=== PATIENT | male | born 1965 | race Hispanic/Latino ===

== ENCOUNTER 2021-07-29 19:34 | Inpatient (IN) | payer MEDICARE, MEDICAID ==
[2021-07-29] MEDS ORDERED: Succinylcholine 200 MG/10 ml SYRINGE FS ONE (20:06)
[2021-07-29] MEDS ORDERED: Propofol 1,000 MG/100 ML VIAL IV ONE (20:15)
[2021-07-29] MEDS ORDERED: Lorazepam 2 MG/ML VIAL ONE (20:24)
[2021-07-29] MEDS ORDERED: Fentanyl 100 MCG/2 ML VIAL ONE (20:31)
[2021-07-29] MEDS ORDERED: Dexamethasone 10 MG/ML VIAL ONE (20:40)
[2021-07-29] MEDS ORDERED: Fentanyl CADD 100 ML IV SCH (20:45)
[2021-07-29 20:47] LABS: Hemoglobin 16.1 g/dL (14.0-18.0); Mean Corpuscular HGB CONC 35.4 g/dL (32.0-36.0); Mean Corpuscular Volume 98.8 fL (78.0-98.0); Mean Platelet Volume 8.4 fL (7.4-10.4); Platelet Count 152 thou/uL (130-400); RBC Distribution Width 12.9 % (11.5-14.5); Red Blood Cell (RBC) Count 4.59 mill/uL (4.70-6.10)
[2021-07-29 20:58] LABS: Analyzer IN Cardio ER; Base Excess (BEa) -7.1 mEq/L (-2.0 to +3.0); CO2 Tension 40.7 mmHg (35.0-45.0); Calcium, Ionized (arterial) 1.04 mmol/L (1.12-1.30); Carboxyhemoglobin (COHb) 0.7 gm% (0.0-3.0); Hemoglobin (Hb) 15.8 g/dL (14.0-18.0); Potassium - ABG Lab 3.41 mmol/L (3.70-5.30); pH, Arterial 7.29 (7.35-7.45)
[2021-07-29 21:00] LABS: ALV-art Gradient 607.425 mmHg (0-20); O2 Tension (PaO2), arterial 54.7 mmHg (80.0-100.0); Puncture Site LBA
[2021-07-29 21:20] LABS: CKMB 10.1 ng/mL (0-6.6)
[2021-07-29 21:25] LABS: Band 19 % (5-11); Lymphocytes 11 % (21-51); MDiff Complete? YES; Monocytes 5 % (0-10); Neutrophil 65 % (42-75)
[2021-07-29 21:41] LABS: SARS-CoV-2 NAA Rapid Test DETECTED (NotDetected)
[2021-07-29 21:49] LABS: Calcium 7.9 mg/dL (7.8-10.44); Chloride 102 mmol/L (98-107); Potassium 3.6 mmol/L (3.5-5.1); Sodium 137 mmol/L (136-145)
[2021-07-29 21:50] LABS: Globulin 4.2 g/dL (2.4-3.5); Glucose 176 mg/dL (70-105); Protein, Total 7.2 g/dL (6.0-8.3)
[2021-07-29 21:52] LABS: Anion Gap 20 mmol/L (10-20); Bilirubin, Total 0.6 mg/dL (0.2-1.2); Carbon Dioxide 19 mmol/L (22-29)
[2021-07-29 21:53] LABS: Alkaline Phosphatase 106 U/L (40-110); Calc. Creatinine Clearance 0 mL/min (70-130)
[2021-07-29 21:54] LABS: BUN (Urea Nitrogen) 52 mg/dL (8.4-25.7)
[2021-07-29 21:55] LABS: AST (SGOT) 130 U/L (5-34)
[2021-07-29 21:56] LABS: ALT (SGPT) 39 U/L (8-55)
[2021-07-29] MEDS ORDERED: Ondansetron ODT 4 MG TAB PO PRN (22:50)
[2021-07-29] MEDS ORDERED: Ondansetron PF 4 MG/2 ML Vial IVP PRN (22:50)
[2021-07-29] MEDS ORDERED: Acetaminophen 325 MG TAB PO PRN (22:50)
[2021-07-29] MEDS ORDERED: Acetaminophen 650 MG Suppository PR PRN (22:50)
[2021-07-29] MEDS ORDERED: Ventilator Sedation Protocol 1 EACH FS SCH (23:00)
[2021-07-29] MEDS ORDERED: Morphine 4 MG/ML VIAL SLOW IVP PRN (23:16)
[2021-07-29] MEDS ORDERED: DISCONTINUE PREVIOUS NARCOTIC PAIN MEDICATIONS AND BENZODIAZEPINES FS SCH (23:30)
[2021-07-29] MEDS ORDERED: Propofol BOLUS 1,000 MG/100 ML VIAL IV PRN (23:30)
[2021-07-29] MEDS ORDERED: Fentanyl BOLUS 250 ML IVPB PRN (23:30)
[2021-07-29 23:59] LABS: Actual Bicarbonate (HCO3a) 23.1 mEq/L (22-28); Base Excess (BEa) -0.5 mEq/L (-2.0 to +3.0); Calcium, Ionized (arterial) 1.03 mmol/L (1.12-1.30); Carboxyhemoglobin (COHb) 0.6 gm% (0.0-3.0); Hemoglobin (Hb) 15.7 g/dL (14.0-18.0); Potassium - ABG Lab 3.63 mmol/L (3.70-5.30); pH, Arterial 7.44 (7.35-7.45)
[2021-07-30] LABS: O2 Tension (PaO2), arterial 46.4 mmHg (80.0-100.0); Puncture Site LRA
[2021-07-30 00:09] LABS: Anion Gap 16 mmol/L (10-20); BUN (Urea Nitrogen) 55 mg/dL (8.4-25.7); CRP (Inflammatory) 6.05 mg/dL (= or < 0.5); Calc. Creatinine Clearance 0 mL/min (70-130); Calcium 7.9 mg/dL (7.8-10.44); Carbon Dioxide 22 mmol/L (22-29); Chloride 102 mmol/L (98-107); Glucose 191 mg/dL (70-105); Potassium 3.6 mmol/L (3.5-5.1); Sodium 136 mmol/L (136-145)
[2021-07-30] MEDS ORDERED: Albuterol 200 PUFF (6.7GM INHALER) INH PRN (00:09)
[2021-07-30] MEDS ORDERED: Sterile Water 10 ML VIAL FS PRN (00:18)
[2021-07-30] MEDS: Vecuronium 10 MG VIAL IVP PRN ×4 (01:17→20:30)
[2021-07-30] MEDS: Propofol 1,000 MG/100 ML VIAL IV PRN ×2 (01:17→20:30)
[2021-07-30 01:24] LABS: Troponin I 0.061 ng/mL (< 0.028)
[2021-07-30] MEDS ORDERED: Enoxaparin Sodium 80 MG/0.8 ML SYRINGE SC SCH (01:30)
[2021-07-30] MEDS ORDERED: Sodium Chloride 0.9% 1,000 ML IV SCH (01:30)
[2021-07-30] MEDS: Albuterol 200 PUFF (6.7GM INHALER) INH SCH ×6 (03:43→22:53)
[2021-07-30 04:04] LABS: Troponin I 0.048 ng/mL (< 0.028)
[2021-07-30 04:34] LABS: #Lymphocytes 0.4 thou/uL (1.20-3.40); #Monocytes 0.3 thou/uL (0.11-0.59); #Neutrophils 2.1 thou/uL (1.40-6.50); %Eosinophils 0.2 % (0.0-10.0); %Lymphocytes 15.3 % (21.0-51.0); %Monocytes 10.5 % (0.0-10.0); Mean Corpuscular HGB CONC 34.7 g/dL (32.0-36.0); Mean Corpuscular Hemoglobin 33.7 pg (27.0-31.0); Mean Corpuscular Volume 96.9 fL (78.0-98.0); Mean Platelet Volume 8.9 fL (7.4-10.4); Platelet Count 123 thou/uL (130-400); RBC Distribution Width 12.9 % (11.5-14.5); Red Blood Cell (RBC) Count 4.16 mill/uL (4.70-6.10); White Blood Cell (WBC) Count 2.8 thou/uL (4.8-10.8)
[2021-07-30] MEDS: Ascorbic Acid 500 mg Chewable Tablet PO SCH (07:40)
[2021-07-30] MEDS: Cholecalciferol (Vitamin D3) 400 UNITS TAB PO SCH (07:41)
[2021-07-30] MEDS: Zinc Sulfate 220 MG CAP PO SCH (07:41)
[2021-07-30] MEDS: Pantoprazole 40 MG VIAL IVP SCH (07:41)
[2021-07-30 08:37] LABS: Actual Bicarbonate (HCO3a) 18.9 mEq/L (22-28); Base Excess (BEa) -1.7 mEq/L (-2.0 to +3.0); CO2 Tension 23.7 mmHg (35.0-45.0); Calcium, Ionized (arterial) 1.06 mmol/L (1.12-1.30); Carboxyhemoglobin (COHb) 0.6 gm% (0.0-3.0); Hemoglobin (Hb) 15.9 g/dL (14.0-18.0); O2 Tension (PaO2), arterial 51.5 mmHg (80.0-100.0); Potassium - ABG Lab 3.18 mmol/L (3.70-5.30); pH, Arterial 7.52 (7.35-7.45)
[2021-07-30 08:38] LABS: ALV-art Gradient 631.875 mmHg (0-20); Puncture Site RRA
[2021-07-30] MEDS ORDERED: Enoxaparin Sodium 30 MG/0.3 ML SYRINGE SC SCH (09:00)
[2021-07-30] MEDS ORDERED: Dexamethasone 10 MG/ML VIAL SLOW IVP SCH (09:00)
[2021-07-30] MEDS ORDERED: Sterile Water 0 ML ONE (13:57)
[2021-07-30] MEDS: Lorazepam 2 MG/ML VIAL SLOW IVP PRN (20:30)
[2021-07-30] MEDS: Dexamethasone 10 MG/ML VIAL SLOW IVP SCH (20:31)
[2021-07-30] MEDS: Enoxaparin Sodium 80 MG/0.8 ML SYRINGE SC SCH (20:31)
[2021-07-30] MEDS: HumaLOG 300 UNITS/3 ML VIAL SC PRN (23:04)
[2021-07-31] MEDS: Fentanyl CADD 100 ML IV SCH (02:41)
[2021-07-31 03:57] LABS: ALT (SGPT) 37 U/L (8-55); AST (SGOT) 97 U/L (5-34); Albumin 2.5 g/dL (3.5-5.0); Alkaline Phosphatase 101 U/L (40-110); Anion Gap 17 mmol/L (10-20); BUN (Urea Nitrogen) 63 mg/dL (8.4-25.7); Bilirubin, Total 1.8 mg/dL (0.2-1.2); Calc. Creatinine Clearance 28 mL/min (70-130); Calcium 7.8 mg/dL (7.8-10.44); Carbon Dioxide 18 mmol/L (22-29); Chloride 107 mmol/L (98-107); Glucose 228 mg/dL (70-105); Potassium 3.8 mmol/L (3.5-5.1); Protein, Total 6.5 g/dL (6.0-8.3); Sodium 138 mmol/L (136-145)
[2021-07-31] MEDS: HumaLOG 300 UNITS/3 ML VIAL SC PRN ×4 (04:41→21:24)
[2021-07-31 08:07] LABS: Actual Bicarbonate (HCO3a) 19.5 mEq/L (22-28); Base Excess (BEa) -3.6 mEq/L (-2.0 to +3.0); CO2 Tension 30.4 mmHg (35.0-45.0); Calcium, Ionized (arterial) 1.04 mmol/L (1.12-1.30); Carboxyhemoglobin (COHb) 0.8 gm% (0.0-3.0); Hemoglobin (Hb) 15.6 g/dL (14.0-18.0); O2 Tension (PaO2), arterial 87.5 mmHg (80.0-100.0); Potassium - ABG Lab 3.83 mmol/L (3.70-5.30); pH, Arterial 7.43 (7.35-7.45)
[2021-07-31 08:11] LABS: Puncture Site RRA
[2021-07-31] MEDS ORDERED: FLU VACC QS2021-22(6MOS UP)/PF 60 MCG/0.5 ML SYRINGE IM ONE (09:00)
[2021-07-31] MEDS: Zinc Sulfate 220 MG CAP PO SCH (09:15)
[2021-07-31] MEDS: Pantoprazole 40 MG VIAL IVP SCH (09:15)
[2021-07-31] MEDS: Dexamethasone 10 MG/ML VIAL SLOW IVP SCH ×2 (09:15→20:07)
[2021-07-31] MEDS: Cholecalciferol (Vitamin D3) 400 UNITS TAB PO SCH (09:15)
[2021-07-31] MEDS: Ascorbic Acid 500 mg Chewable Tablet PO SCH (09:15)
[2021-07-31] MEDS: Sodium Chloride 0.45% 1,000 ML IV SCH (12:00)
[2021-07-31] MEDS ORDERED: Atropine Sulfate 1 mg/10 ml Syringe ONE (13:21)
[2021-07-31] MEDS ORDERED: DOPamine 400 MG/D5W 250 ML 250 ML IVPB SCH (13:45)
[2021-07-31] MEDS: Albuterol 200 PUFF (6.7GM INHALER) INH SCH ×5 (14:30→21:36)
[2021-07-31] MEDS: Propofol 1,000 MG/100 ML VIAL IV PRN (16:00)
[2021-07-31] MEDS: Vecuronium 10 MG VIAL IVP PRN ×2 (16:18→20:06)
[2021-07-31] MEDS: Enoxaparin Sodium 80 MG/0.8 ML SYRINGE SC SCH (20:06)
[2021-07-31] MEDS: Lorazepam 2 MG/ML VIAL SLOW IVP PRN (20:06)
[2021-07-31] MEDS: Metoclopramide HCl 10 MG/2 ML VIAL IVP SCH (20:09)
[2021-08-01] MEDS: Sodium Chloride 0.45% 1,000 ML IV SCH ×2 (00:29→17:01)
[2021-08-01] MEDS: Albuterol 200 PUFF (6.7GM INHALER) INH SCH ×6 (00:57→22:32)
[2021-08-01 04:07] LABS: ALT (SGPT) 36 U/L (8-55); AST (SGOT) 76 U/L (5-34); Albumin 2.5 g/dL (3.5-5.0); Alkaline Phosphatase 104 U/L (40-110); Anion Gap 17 mmol/L (10-20); BUN (Urea Nitrogen) 62 mg/dL (8.4-25.7); Bilirubin, Total 3.4 mg/dL (0.2-1.2); Calc. Creatinine Clearance 39 mL/min (70-130); Calcium 7.8 mg/dL (7.8-10.44); Carbon Dioxide 16 mmol/L (22-29); Chloride 111 mmol/L (98-107); Globulin 4.2 g/dL (2.4-3.5); Glucose 238 mg/dL (70-105); Potassium 4.6 mmol/L (3.5-5.1); Protein, Total 6.7 g/dL (6.0-8.3); Sodium 139 mmol/L (136-145)
[2021-08-01] MEDS: HumaLOG 300 UNITS/3 ML VIAL SC PRN ×4 (04:58→22:08)
[2021-08-01] MEDS: Vecuronium 10 MG VIAL IVP PRN ×2 (07:25→13:31)
[2021-08-01] MEDS: Ascorbic Acid 500 mg Chewable Tablet PO SCH (08:26)
[2021-08-01] MEDS: Metoclopramide HCl 10 MG/2 ML VIAL IVP SCH ×2 (08:26→20:00)
[2021-08-01] MEDS: Cholecalciferol (Vitamin D3) 400 UNITS TAB PO SCH (08:26)
[2021-08-01] MEDS: Dexamethasone 10 MG/ML VIAL SLOW IVP SCH ×2 (08:26→20:00)
[2021-08-01] MEDS: Zinc Sulfate 220 MG CAP PO SCH (08:26)
[2021-08-01] MEDS: Pantoprazole 40 MG GRANULES PACKET PER TUBE SCH (08:27)
[2021-08-01] MEDS: Lorazepam 2 MG/ML VIAL SLOW IVP PRN (13:44)
[2021-08-01 13:55] VITALS: BMI 26.0
[2021-08-01] MEDS ORDERED: Norepinephrine 8 MG/0.9% NS 250 ML ONE (14:40)
[2021-08-01] MEDS ORDERED: Sodium Chloride 0.9% 1,000 ML IV SCH ×2 (15:00→18:15)
[2021-08-01] MEDS ORDERED: Sodium Bicarbonate 150 MEQ in Dextrose 5% in Water 1,000 ML IV SCH (15:30)
[2021-08-01] MEDS: Enoxaparin Sodium 80 MG/0.8 ML SYRINGE SC SCH (20:00)
[2021-08-01] MEDS: Propofol 1,000 MG/100 ML VIAL IV PRN (22:16)
[2021-08-02] MEDS: Albuterol 200 PUFF (6.7GM INHALER) INH SCH ×6 (01:40→21:45)
[2021-08-02] MEDS: Fentanyl CADD 100 ML IV SCH (02:54)
[2021-08-02] MEDS: HumaLOG 300 UNITS/3 ML VIAL SC PRN ×4 (04:11→22:41)
[2021-08-02 04:14] LABS: ALT (SGPT) 25 U/L (8-55); AST (SGOT) 40 U/L (5-34); Albumin 2.1 g/dL (3.5-5.0); Alkaline Phosphatase 82 U/L (40-110); Anion Gap 11 mmol/L (10-20); BUN (Urea Nitrogen) 64 mg/dL (8.4-25.7); Bilirubin, Total 4.3 mg/dL (0.2-1.2); Calc. Creatinine Clearance 44 mL/min (70-130); Calcium 7.4 mg/dL (7.8-10.44); Carbon Dioxide 25 mmol/L (22-29); Chloride 106 mmol/L (98-107); Globulin 3.6 g/dL (2.4-3.5); Glucose 285 mg/dL (70-105); Potassium 3.9 mmol/L (3.5-5.1); Protein, Total 5.7 g/dL (6.0-8.3); Sodium 138 mmol/L (136-145)
[2021-08-02 04:26] LABS: Hemoglobin 14.3 g/dL (14.0-18.0); Mean Corpuscular Hemoglobin 34.4 pg (27.0-31.0); Mean Platelet Volume 9.3 fL (7.4-10.4); Platelet Count 124 thou/uL (130-400); RBC Distribution Width 13.7 % (11.5-14.5); Red Blood Cell (RBC) Count 4.16 mill/uL (4.70-6.10); White Blood Cell (WBC) Count 10.7 thou/uL (4.8-10.8)
[2021-08-02 04:27] LABS: Band 45 % (5-11); Lymphocytes 1 % (21-51); MDiff Complete? YES; Metamyelocyte 1 % (0-0); Monocytes 2 % (0-10); Neutrophil 51 % (42-75); Platelet Morphology Comment Appears Decreased
[2021-08-02] MEDS: Sodium Chloride 0.9% 1,000 ML IV SCH (05:31)
[2021-08-02 08:08] LABS: Actual Bicarbonate (HCO3a) 23.7 mEq/L (22-28); Base Excess (BEa) -1.1 mEq/L (-2.0 to +3.0); CO2 Tension 40.2 mmHg (35.0-45.0); Calcium, Ionized (arterial) 1.01 mmol/L (1.12-1.30); Carboxyhemoglobin (COHb) 0.9 gm% (0.0-3.0); Hemoglobin (Hb) 14.5 g/dL (14.0-18.0); Potassium - ABG Lab 3.52 mmol/L (3.70-5.30); pH, Arterial 7.39 (7.35-7.45)
[2021-08-02 08:09] LABS: O2 Tension (PaO2), arterial 40.9 mmHg (80.0-100.0); Puncture Site RRA
[2021-08-02] MEDS: Propofol 1,000 MG/100 ML VIAL IV PRN (08:40)
[2021-08-02] MEDS: Cholecalciferol (Vitamin D3) 400 UNITS TAB PO SCH (08:41)
[2021-08-02] MEDS: Pantoprazole 40 MG GRANULES PACKET PER TUBE SCH (08:41)
[2021-08-02] MEDS: Zinc Sulfate 220 MG CAP PO SCH (08:41)
[2021-08-02] MEDS: Metoclopramide HCl 10 MG/2 ML VIAL IVP SCH ×2 (08:41→20:01)
[2021-08-02] MEDS: Ascorbic Acid 500 mg Chewable Tablet PO SCH (08:41)
[2021-08-02] MEDS: Dexamethasone 10 MG/ML VIAL SLOW IVP SCH ×2 (08:41→20:01)
[2021-08-02] MEDS: Norepinephrine 8 MG/0.9% NS 250 ML IVPB SCH ×2 (08:46→22:40)
[2021-08-02] MEDS ORDERED: Amiodarone 150 MG, Admixture Fee 1 EACH in Dextrose 5% in Water 100 ML IVPB SCH (09:15)
[2021-08-02] MEDS: Amiodarone 450 MG, Admixture Fee 1 EACH in Dextrose 5% in Water 250 ML IVPB SCH ×2 (09:37→18:05)
[2021-08-02] MEDS ORDERED: Vecuronium 10 MG VIAL ONE (09:52)
[2021-08-02] MEDS: Vecuronium 10 MG VIAL IVP PRN ×3 (10:21→18:04)
[2021-08-02] MEDS ORDERED: Sterile Water 10 ML ONE ×2 (14:31→18:00)
[2021-08-02 14:51] VITALS: BP 95/61
[2021-08-02] MEDS: Enoxaparin Sodium 80 MG/0.8 ML SYRINGE SC SCH (20:01)
[2021-08-03 00:31] VITALS: TEMP 99.7
[2021-08-03] MEDS: Propofol 1,000 MG/100 ML VIAL IV PRN (01:24)
[2021-08-03] MEDS: Sodium Chloride 0.9% 1,000 ML IV SCH (01:25)
[2021-08-03] MEDS: Albuterol 200 PUFF (6.7GM INHALER) INH SCH ×2 (03:05→07:57)
[2021-08-03] MEDS: Fentanyl CADD 100 ML IV SCH (03:29)
[2021-08-03 04:59] LABS: ALT (SGPT) 22 U/L (8-55); AST (SGOT) 49 U/L (5-34); Albumin 1.9 g/dL (3.5-5.0); Alkaline Phosphatase 71 U/L (40-110); Anion Gap 18 mmol/L (10-20); BUN (Urea Nitrogen) 79 mg/dL (8.4-25.7); Calc. Creatinine Clearance 39 mL/min (70-130); Calcium 7.4 mg/dL (7.8-10.44); Carbon Dioxide 20 mmol/L (22-29); Chloride 104 mmol/L (98-107); Globulin 3.6 g/dL (2.4-3.5); Glucose 123 mg/dL (70-105); Potassium 3.6 mmol/L (3.5-5.1); Protein, Total 5.5 g/dL (6.0-8.3); Sodium 138 mmol/L (136-145)
[2021-08-03 05:04] LABS: Band 18 % (5-11); Burr Cells MODERATE= 6-15 cells (100X) (0-1/hpf); Hemoglobin 14.6 g/dL (14.0-18.0); Lymphocytes 6 % (21-51); MDiff Complete? YES; Mean Corpuscular Hemoglobin 34.6 pg (27.0-31.0); Mean Platelet Volume 10.9 fL (7.4-10.4); Monocytes 2 % (0-10); Myelocyte 8 % (0-0); Neutrophil 66 % (42-75); Nucleated RBC 6 % (0); Platelet Count 44 thou/uL (130-400); Platelet Morphology Comment Appears Decreased; Polychromasia SLIGHT = 2-3 cells (100X) (0-2/hpf); RBC Distribution Width 14.2 % (11.5-14.5); Red Blood Cell (RBC) Count 4.22 mill/uL (4.70-6.10); Tear Drops MODERATE= 6-15 cells (100X) (0-1/hpf); White Blood Cell (WBC) Count 4.7 thou/uL (4.8-10.8)
[2021-08-03] MEDS: Norepinephrine 8 MG/0.9% NS 250 ML IVPB SCH (05:20)
[2021-08-03] MEDS: Amiodarone 450 MG, Admixture Fee 1 EACH in Dextrose 5% in Water 250 ML IVPB SCH (06:11)
[2021-08-03] MEDS ORDERED: Argatroban (ESRD) 250 MG/2.5 ML IVPB SCH (07:00)
[2021-08-03] MEDS ORDERED: Sodium Chloride 0.9% 1,000 ML IV SCH (09:02)
[2021-08-03] MEDS ORDERED: Argatroban (Non -ESRD) 250 MG in Sodium Chloride 0.9% 250 ML 250 ML IVPB SCH (10:30)
== END 2021-08-03 08:50 | disposition expired | DRG 870 ==
LOC: ERS 19:34 → CCU 21:54
PROVIDERS: ADMIT Student in an Organized Health Care Education/Training Program; ATTEND Internal Medicine
PROC: 0BH17EZ Insertion of Endotracheal Airway into Trachea, Via Natural or Artificial Opening (ICD-10-PCS; principal; 2021-07-29)
PROC: 5A1955Z Respiratory Ventilation, Greater than 96 Consecutive Hours (ICD-10-PCS; 2021-07-29)
PROC: 0D9670Z Drainage of Stomach with Drainage Device, Via Natural or Artificial Opening (ICD-10-PCS; 2021-07-29)
PROC: 8E0ZXY6 Isolation (ICD-10-PCS; 2021-07-29)
PROC: 3E0333Z Introduction of Anti-inflammatory into Peripheral Vein, Percutaneous Approach (ICD-10-PCS; 2021-07-30)
PROC: 3E033XZ Introduction of Vasopressor into Peripheral Vein, Percutaneous Approach (ICD-10-PCS; 2021-07-31)
DX: A41.89 Other specified sepsis (principal); J80 Acute respiratory distress syndrome; U07.1 COVID-19; J12.82 Pneumonia due to coronavirus disease 2019; N17.9 Acute kidney failure, unspecified; E87.2 Acidosis; Z66 Do not resuscitate; R65.20 Severe sepsis without septic shock; E11.22 Type 2 diabetes mellitus with diabetic chronic kidney disease; E66.9 Obesity, unspecified; I46.9 Cardiac arrest, cause unspecified; N18.30 Chronic kidney disease, stage 3 unspecified; E88.09 Other disorders of plasma-protein metabolism, not elsewhere classified; Z68.39 Body mass index [BMI] 39.0-39.9, adult; Z78.1 Physical restraint status; Q90.9 Down syndrome, unspecified; I48.0 Paroxysmal atrial fibrillation
CPT/HCPCS: 31500; 36415; 36416; 36600; 71045; 80053; 82553; 82805; 83880; 84484; 85007; 85025; 85027; 85379; 86140; 87040; 93005; 94002; 94003; 94760; 96365; 96366; 96368; 96375; 96376; 99292; C9113; J0282; J1100; J1265; J1650; J2060; J2704; J2765; J3010; J7050; J7070; U0002